=== PATIENT | male | born 1965 | race Caucasian/White ===

== ENCOUNTER 2017-12-04 07:44 | Outpatient (CLI) | payer OTHER ==
[2017-12-04] MEDS ORDERED: NALOXONE HCL 0.4 MG/ML INJ IVP PRN (07:54)
[2017-12-04] MEDS ORDERED: fentaNYL 100 MCG/2 ML INJ IVP PRN (07:54)
[2017-12-04] MEDS ORDERED: FLUMAZENIL 0.5 MG/5 ML MDV IVP PRN (07:54)
[2017-12-04] MEDS ORDERED: MIDAZOLAM 2 MG/2 ML VIAL IVP PRN (07:54)
[2017-12-04] MEDS ORDERED: MEPERIDINE 25 MG/ML SYR IVP PRN (07:54)
[2017-12-04] MEDS ORDERED: LIDOCAINE 1% 300 MG/30 ML SDV ONE (07:58)
[2017-12-04] MEDS ORDERED: NS 1,000 ML IV SCH (08:00)
[2017-12-04] MEDS ORDERED: FLUMAZENIL 0.5 MG/5 ML MDV IVP ONE (08:06)
[2017-12-04] MEDS ORDERED: NALOXONE HCL 0.4 MG/ML INJ ONE (08:06)
[2017-12-04] MEDS ORDERED: MIDAZOLAM 2 MG/2 ML VIAL ONE (08:06)
[2017-12-04] MEDS ORDERED: fentaNYL 100 MCG/2 ML INJ ONE ×2 (08:07)
--- NOTE | 2017-12-04 08:50 | PDRADPRE ---
Radiology History & Physical Indication for procedure: cancer (Colon Cancer) Home medications: Synjardy 5-1,000 mg Tablet 1,000 mg PO BID 11/30/17 [Last Taken Unknown] Atorvastatin Calcium 20 mg PO DAILY 12/02/17 [Last Taken Unknown] Lantus 38 units SQ DAILY 12/02/17 [Last Taken 12/04/17] Losartan Potassium 12.5 mg PO DAILY 12/02/17 [Last Taken Unknown] Allergies/Adverse Reactions: No Known Allergies Allergy (Verified 11/30/17 10:43) Mental status: A&Ox3 Heart exam: regular rate and rhythm Lungs exam: clear to auscultation Mallampati Score: Class 1
--- NOTE | 2017-12-04 08:52 | PDPROPOC ---
Sedation Plan of Care Sedation Plan of Care: vital signs stable, mental status noted, patient educated of risks, benefits, alternatives, patient can tolerate sedation ASA Classification: ASA 2 Planned drugs: fentanyl, midazolam Mallampati Score: Class 1 Mallampati Reference Image: Patient passed 3-3-2 rule?: Yes
[2017-12-04] MEDS ORDERED: ALBUMIN 25% 50 ML SOLN IV ONE ×2 (09:45→09:49)
[2017-12-04 11:11] VITALS: BP 134/87
[2017-12-04] MEDS ORDERED: SYNJARDY PO SCH (21:00)
[2017-12-05] MEDS ORDERED: ATORVASTATIN CALCIUM 20 MG PO SCH (09:00)
[2017-12-05] MEDS ORDERED: LOSARTAN POTASSIUM 12.5 MG PO SCH (09:00)
[2017-12-05] MEDS ORDERED: INSULIN GLARGINE SQ SCH (09:00)
== END 2017-12-04 11:19 | disposition home or self-care (01) ==
LOC: FIMAGING 07:44
PROVIDERS: ATTEND Internal Medicine Hematology & Oncology
PROC: 0FB03ZX Excision of Liver, Percutaneous Approach, Diagnostic (ICD-10-PCS; principal; 2017-12-04 10:28)
PROC: 0W9940Z Drainage of Right Pleural Cavity with Drainage Device, Percutaneous Endoscopic Approach (ICD-10-PCS; principal; 2017-12-04 10:28)
DX: R18.8 Other ascites (principal); C18.9 Malignant neoplasm of colon, unspecified
CPT/HCPCS: J2250; J2310; J3010; P9047

== ENCOUNTER 2017-12-09 05:36 | Day surgery (SDC) | payer OTHER ==
[2017-12-09] MEDS ORDERED: ceFAZolin 2 GM/DEXTROSE 100 ML IV ONE (06:02)
[2017-12-09] MEDS ORDERED: LR 1,000 ML IV ONE (06:03)
[2017-12-09] MEDS ORDERED: BUPIVACAINE 0.25% 30 ML SDV ONE (06:48)
[2017-12-09] MEDS ORDERED: MIDAZOLAM 2 MG/2 ML VIAL IVP ONE (07:02)
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
[2017-12-09] MEDS ORDERED: PROPOFOL/EMULSION 500 MG/50 ML BOTTLE IV ONE (07:06)
[2017-12-09] MEDS ORDERED: fentaNYL 100 MCG/2 ML INJ ONE (07:06)
[2017-12-09] MEDS ORDERED: METOCLOPRAMIDE 10 MG/2 ML VIAL ONE (07:13)
[2017-12-09] MEDS ORDERED: ONDANSETRON 4 MG/2 ML VIAL ONE (07:13)
[2017-12-09] MEDS ORDERED: LIDOCAINE 2% 5 ML SDV ONE (07:13)
[2017-12-09] MEDS ORDERED: LIDOCAINE 1% 300 MG/30 ML SDV ONE (07:15)
[2017-12-09] MEDS ORDERED: HYDROmorphONE/DILAUDID 1 MG/ML INJ IVP PRN (07:50)
[2017-12-09] MEDS ORDERED: fentaNYL 100 MCG/2 ML INJ IVP PRN (07:50)
[2017-12-09] MEDS ORDERED: ONDANSETRON 4 MG/2 ML VIAL IVP PRN (07:50)
[2017-12-09] MEDS ORDERED: NALOXONE HCL 0.4 MG/ML INJ IVP PRN (07:50)
[2017-12-09] MEDS ORDERED: PROMETHAZINE HCL 25 MG/ML INJ IVP PRN (07:50)
--- NOTE | 2017-12-09 08:14 | PDHPUP ---
History & Physical Update H&P update statement: This history and physical update is based on an assessment of the patient which was completed after admission or registration (within 24 hours), but prior to the surgery/procedure. H&P update: H&P reviewed & patient examined, no change in patient's condition since H&P completed
--- NOTE | 2017-12-09 08:15 | POSTANESTH ---
Post Anesthetic Evaluation Cardiovascular Status: Normal, Stable Respiratory Status: Normal, Stable Level of Consciousness/Mental Status: Alert and Oriented Pain Control: Adequate, Prn Tx Ordered Nausea/Vomiting Control: Adequate, Prn Tx Ordered Complications Possibly Related to Anesthesia: None Noted
--- NOTE | 2017-12-09 08:16 | POSTOPPROG ---
Post Op Note Date of Operation: 12/09/17 Surgeon: Ze Hannon Anesthesiologist: Mariah Anesthesia: GET(General Endotracheal) Pre-op Diagnosis: Colon cancer Post-op Diagnosis: same Procedure: US guided R IJ port c fluoro Findings: successful placement Inf/Abcess present in the surg proc area at time of surgery?: No EBL: Minimal
[2017-12-09 10:21] VITALS: BP 115/71
--- NOTE | 2017-12-09 14:06 | GOP ---
[f rep st] OPERATIVE REPORT DATE OF OPERATION: 12/09/2017 SURGEON: Ze Hannon MD JOB BOSS: None. ANESTHESIA: Local with MAC. ANESTHESIOLOGIST: Provided by Dr. Lemus. PREOPERATIVE DIAGNOSIS: Colon cancer. POSTOPERATIVE DIAGNOSIS: Colon cancer. PROCEDURE PERFORMED: Ultrasound-guided right internal jugular PowerPort placement with fluoroscopic guidance. FINDINGS: Successful placement of slim PowerPort with tip at the atriocaval junction. The catheter both flushed and withdrew appropriately and was heparin locked at the end of the procedure. SPECIMENS: None. ESTIMATED BLOOD LOSS: 5 cc. DESCRIPTION OF PROCEDURE: The patient was greeted in the preoperative suite. Once again, risks, nina efits, and alternatives were discussed. Consent was signed. He was then brought back to the operati ve suite, placed on the OR table in supine position. After all anesthesia machines including SCDs we re on and functioning, [employer] time-out was performed. After the patient was gentl y sedated, I commenced the procedure by identifying the right internal jugular vein with ultrasound. I successfully cannulated it and threaded my guidewire. I then placed my peel-away sheath under flu oroscopic guidance. A pocket was then made 2 fingerbreadths below the right clavicle for the port. The port catheter itself was then tunneled from the site to the stick site. Next, successfully place d to the peel-away sheath. It was sized appropriately using fluoroscopic guidance. It was then trim med and attached to the port proper. The port was then placed within the pocket. It both withdrew a nd flushed appropriately. It was heparin locked. It was attached to the subcutaneous tissue with an interrupted Prolene suture. The subcutaneous tissue was reapproximated with interrupted 3-0 Vicryl and the skin with 4-0 Monocryl, over which Dermabond was placed. The patient was then extubated in [facility] operative suite and taken to the PACU in satisfactory condition. DRAINS: None. COUNTS: All counts were reported as correct x2. /[id number]/MODL
== END 2017-12-09 10:40 | disposition home or self-care (01) ==
LOC: FSGY 05:36
PROVIDERS: ATTEND Surgery
PROC: 02H633Z Insertion of Infusion Device into Right Atrium, Percutaneous Approach (ICD-10-PCS; principal; 2017-12-09 07:15)
PROC: 0JH60XZ Insertion of Tunneled Vascular Access Device into Chest Subcutaneous Tissue and Fascia, Open Approach (ICD-10-PCS; principal; 2017-12-09 07:15)
DX: C18.9 Malignant neoplasm of colon, unspecified (principal); C48.2 Malignant neoplasm of peritoneum, unspecified; E11.9 Type 2 diabetes mellitus without complications
CPT/HCPCS: C1788; J0690; J1642; J2250; J2405; J2704; J2765; J3010

== ENCOUNTER → 2017-12-23 | Outpatient (CLI) | payer OTHER | PROC: 0W9930Z Drainage of Right Pleural Cavity with Drainage Device, Percutaneous Approach (ICD-10-PCS; principal; 2017-12-23) | DX: R18.8 Other ascites (principal); C18.7 Malignant neoplasm of sigmoid colon ==

== ENCOUNTER → 2017-12-24 | Outpatient (CLI) | payer OTHER | DX: I82.621 Acute embolism and thrombosis of deep veins of right upper extremity (principal); C16.9 Malignant neoplasm of stomach, unspecified; R05 Cough ==

== ENCOUNTER → 2018-02-09 | Outpatient (CLI) | payer OTHER ==
[~2018-02-09] MED LIST: IOPAMIDOL (ISOVUE-300) 100 ML BTL ONE
== END ==
LOC: FIMAGING 15:36
PROVIDERS: ATTEND Internal Medicine Hematology & Oncology
DX: C18.7 Malignant neoplasm of sigmoid colon (principal); C80.0 Disseminated malignant neoplasm, unspecified; C16.9 Malignant neoplasm of stomach, unspecified; R93.5 Abnormal findings on diagnostic imaging of other abdominal regions, including retroperitoneum
CPT/HCPCS: 82565-PO; Q9967